=== PATIENT | male | born 1945 | race Caucasian/White ===

== ENCOUNTER → 2016-08-07 | Day surgery (SDC) | payer OTHER ==
[~2016-08-07] VITALS: Ht 180.3 cm; Wt 78.0 kg
[~2016-08-07] MED LIST: ASPI1TAB69 PO; BUPIVACAINE HCL PF 0.5% 30 ML VIAL ONE; DEXT 5%-NACL 0.45% 1000 ML INJ 1,000 ML IV SCH; FAMOTIDINE 20 MG/2 ML VIAL ONE; IBUP800T23 PO; LACTATED RINGER'S 1000 ML INJ 1,000 ML IV ONE; LACTATED RINGER'S 1000 ML INJ 1,000 ML ONE; LOSA50TA PO; MIDAZOLAM HCL 2 MG/2 ML VIAL ONE; POVIDONE IODINE 10% OINT 1 PACKET TOP ONE; PROPOFOL 200 MG/20 ML AMP IV ONE; RED1CAP4 PO; SODIUM CHLORIDE 0.9% FLUSH 5 ML FLUSH IVF PRN; SODIUM CHLORIDE 0.9% FLUSH 5 ML FLUSH IVF SCH; ceFAZolin 2 GM PREMIX 50 ML ONE; fentaNYL CITRATE 250 MCG/5 ML AMP ONE
[2016-08-07 06:50] LABS: MEAN CELL VOLUME 95.9 FL (80.0-100.0); MEAN CORPUSCULAR HEMOGLOBIN 32.7 PG (27.0-34.0); MEAN CORPUSCULAR HGB CONC 34.1 % (32.0-36.0); PLATELET COUNT 243 TH/MM3 (150-450); RED BLOOD COUNT 4.38 MIL/MM3 (4.50-5.90); RED CELL DISTRIBUTION WIDTH 11.7 % (11.6-17.2); REVIEW FLAG FINAL; WHITE BLOOD COUNT 4.1 TH/MM3 (4.0-11.0)
[2016-08-07 06:51] VITALS: BP 152/97; PULSE 68; RESP 20; TEMP 97.8; O2SAT 100
--- NOTE | 2016-08-07 07:53 | HP.UPD ---
H&P Update Date: Aug 07, 2016 Note The Pre-Admit History and Physical Examination regarding the above named patient was reviewed (including, but not limited to, vital signs, medications, allergies, co-morbid conditions), and upon re-examination it is noted that: Indicated with "X" x - the patient's condition has not significantly changed since the last examination. [] - the patient's condition has changed since the last examination. Changes: Magda Marie MD Aug 07, 2016 07:53
[2016-08-07 10:40] VITALS: PULSE 68
--- NOTE | 2016-08-07 10:52 | HHI.PR ---
Immediate Post Op Note Procedure Date: Aug 07, 2016 Pre Op Diagnosis: (1) Dupuytren's contracture of hand Post Op Diagnosis: (1) Dupuytren's contracture of hand Surgeon: Magda Marie Benefit Authorizer(s): None Procedure: Release Dupuytren's contracture of the right palm, little and ring fingers, and first web space. Specimen(s) removed: Dupuytren's fascia. Anesthesia: General Drains: None Tourniquet time (min at mmHg) 105 minutes at 220 mm Hg Patient to: PACU Patient Condition: Good Date/Time of Procedure: SEE SURGICAL CARE RECORD Magda Marie MD Aug 07, 2016 10:52
[2016-08-07 11:00] VITALS: TEMP 97.8
[2016-08-07 11:45] VITALS: BP 132/79; PULSE 69; RESP 14; O2SAT 100
--- NOTE | 2016-08-08 11:00 | EKG ---
Date Performed: 08/07/2016 Time Performed: 06:50:42 PTAGE: 70 years EKG: Sinus rhythm Left axis deviation rSr'(V1) - probable normal variant Abnormal ECG NO PREVIOUS TRACING DOCTOR: Jesus Tomas Interpretating Date/Time 08/08/2016 10:57:47
--- NOTE | 2016-08-11 10:31 | MP ---
cc: MARC ZUNIGA M.D. DATE OF SURGERY: 08/07/2016 PREOPERATIVE DIAGNOSIS Dupuytren's contracture of the right palm, fifth finger, fourth finger and first webspace. POSTOPERATIVE DIAGNOSIS Dupuytren's contracture of the right palm, fifth finger, fourth finger and first webspace. PROCEDURE Release of Dupuytren's contracture of the right palm, fourth and fifth fingers and the first webspace. ANESTHESIA General. SURGEON Dr. Zuniga INDICATIONS A 70-year-old male with Dupuytren's disease with contractures as noted above. FINDINGS At the completion of the procedure the fascia had been removed and the joints released. TOURNIQUET TIME 105 minutes. DETAILS OF PROCEDURE The patient was seen preoperatively where the sites and side were identified and marked. The patient was then taken to the operating room, placed in a supine position. His identity was checked against the arm band and the consent form, site and side confirmed. A timeout was called prior to beginning the procedure. The right upper extremity was prepped with Hibiclens and draped in the usual sterile fashion. The area to be incised was outlined with a marking pen in zig-zag incision from the proximal palm to the DIP joint of the fifth finger. A zig-zag incision was also designed over the proximal phalanx of the ring finger and incisions designed over the bands in the first webspace. The arm was exsanguinated and the tourniquet inflated to 220 mmHg. Bupivacaine 0.5% plain was used to make ulnar nerve blocks and median nerve blocks in the palmar surface. A 15 blade was then used to make an incision on the proximal palm distally using a zig-zag pattern as noted above. Under loupe magnification flaps were elevated and raised. Care was taken to identify and protect the neurovascular bundles. Dissection was continued from proximal to distal until the fascia from the palm to the distal fifth finger was removed. A separate incision was made over the proximal phalanx of the ring finger and that band was dissected free and sent off as pathologic specimen. Two separate incisions were made over the bands of the first webspace. The incisions were made down through the skin down to the subcutaneous tissue. Under loupe magnification the fascia was carefully and removed. Once all the fascia had been removed the wounds were copiously irrigated with saline and closed with interrupted and running 5-0 nylon suture. The tourniquet was released after 105 minutes of tourniquet time. Pressure was applied. After several minutes there was no evidence of any oozing and a dressing was applied using povidone-iodine ointment, Adaptic, Telfa, fluffy gauze, hand wrap and a dorsal splint. The patient was then taken from the operating room to the recovery room in satisfactory condition having tolerated the procedure well. Postoperative instructions include keeping the arm elevated, keeping it clean and dry and returning next week for follow-up. The patient will take ibuprofen for pain. MD ZONIA Watson/ROBER /10:56 AM /10:17 AM
== END | disposition home or self-care (01) ==
LOC: PHSDC 06:17
PROVIDERS: ATTEND Specialist
DX: M72.0 Palmar fascial fibromatosis [Dupuytren] (principal); R94.31 Abnormal electrocardiogram [ECG] [EKG]
CPT/HCPCS: 01810; 26123; 26125; 85027; 88304; 93005; J0690; J2250; J3010; J7120